=== PATIENT | male | born 1985 | race Two or more races ===

== ENCOUNTER 2020-02-05 23:24 | Emergency (ER) | payer MEDICAID ==
[~2020-02-05] VITALS: Ht 177.8 cm; Wt 81.0 kg
[2020-02-05 23:37] VITALS: BP 128/80
[2020-02-06] MEDS ORDERED: LORAZEPAM 0.5MG TABLET PO ONE (00:15)
== END 2020-02-06 01:14 | disposition home or self-care (01) ==
LOC: ER 23:24
DX: F41.9 Anxiety disorder, unspecified (principal); F12.10 Cannabis abuse, uncomplicated; F32.9 Major depressive disorder, single episode, unspecified
CPT/HCPCS: 93005; 99283